=== PATIENT | male | born 1965 | race Caucasian/White ===

== ENCOUNTER 2018-06-08 14:25 | Emergency (ER) | payer OTHER ==
[~2018-06-08] VITALS: Ht 170.2 cm; Wt 65.8 kg
[~2018-06-08 14:25] MED LIST: CIPRO500 MG PO; FLAGYL500 MG PO; HYDROCODONE-AP1 EAC6 PO; ROBAXIN 750 MG750 M1 PO; VENTOLIN HFA 1818 GM INH
[2018-06-08 15:17] LABS: ABSOLUTE BASOPHILS 0.1 thou/uL (0.0-0.2); ABSOLUTE EOSINOPHILS 0.2 thou/uL (0.0-0.7); ABSOLUTE LYMPHOCYTES 1.1 thou/uL (0.8-5.3); ABSOLUTE MONOCYTES 0.5 thou/uL (0.0-1.2); ABSOLUTE NEUTROPHILS 7.9 thou/uL (1.6-8.1); EOSINOPHILS 1.6 %; HEMATOCRIT 47.9 % (42.0-52.0); HEMOGLOBIN 16.3 gm/dL (14.0-18.0); LYMPHOCYTES 11.6 %; MCH 31.8 pg (26.0-34.0); MCHC 34.1 g/dL (28.0-37.0); MCV 93.2 fL (80.0-100.0); MONOCYTES 4.9 %; MPV 8.5 fl. (7.2-11.1); NUCLEATED RBCS 0 /100WBC; PLATELET COUNT* 356 thou/uL (150-400); POLYS 80.9 %; RBC 5.14 mil/uL (4.50-6.00); RDW-CV 13.2 % (10.5-14.5); WBC 9.7 thou/uL (4.0-11.0)
[2018-06-08 15:31] LABS: ALBUMIN 4.1 g/dL (3.4-5.0); CALCIUM 9.4 mg/dL (8.5-10.1); POTASSIUM 4.4 mmol/L (3.5-5.1); TOTAL BILIRUBIN 0.6 mg/dL (<0.1-1.0); TOTAL PROTEIN 7.2 g/dL (6.4-8.2)
[2018-06-08] MEDS ORDERED: NABUMETONE 750750 M1 PO (15:52)
[2018-06-08] MEDS ORDERED: FLOMAX0.4 MG PO (15:52)
[2018-06-08] MEDS ORDERED: NORCO 5-325 TA1 EACH PO (15:52)
[2018-06-08 17:32] LABS: URINE BILIRUBIN NEGATIVE (Negative); URINE BLOOD 3+ (Negative); URINE CLARITY CLEAR; URINE COLOR YELLOW; URINE GLUCOSE-RANDOM NEGATIVE (Negative); URINE KETONES TRACE (Negative); URINE LEUKOCYTES-REFLEX NEGATIVE (Negative); URINE NITRITE-REFLEX NEGATIVE (Negative); URINE PROTEIN NEGATIVE (Negative); URINE SPECIFIC GRAVITY <= 1.005 (1.005-1.030); URINE UROBILINOGEN 0.2 E.U./dl (0.2-1.0)
[2018-06-08 17:37] LABS: SQUAMOUS 0-3 Few /LPF (0-3); URINE WBC-REFLEX None Seen /HPF (0-5)
[2018-06-08 17:38] LABS: BACTERIA-REFLEX None Seen /HPF (None Seen); CASTS None Seen /LPF (None Seen); CRYSTALS None Seen /LPF (None Seen); URINE RBC 3-10 Few /HPF (0-2)
[2018-06-08 18:05] VITALS: BP 128/95
== END 2018-06-08 18:06 | disposition home or self-care (01) ==
LOC: M.ERS 14:25
PROVIDERS: Nurse Practitioner Family
DX: N20.1 Calculus of ureter (principal); K40.90 Unilateral inguinal hernia, without obstruction or gangrene, not specified as recurrent